=== PATIENT | male | born 1930 | race Caucasian/White ===

== ENCOUNTER 2017-04-18 16:04 | Emergency (ER) | payer MEDICARE ==
[~2017-04-18] VITALS: Ht 167.6 cm; Wt 74.4 kg
[~2017-04-18 16:04] MED LIST: ANTIVERT25 MG PO; ASPIRIN EC81 MG PO; ATROPINE SULFAT15 ML OPTH; CARVEDILOL3.125 MG PO; HYDROCODON-ACE1 EA10 PO; PANTOPRAZOLE SO40 MG PO; PRED FORTE1 ML OPTH; SIMVASTATIN40 MG PO; TAMSULOSIN HCL0.4 MG PO; WARFARIN SODIUM4 MG PO
== END 2017-04-18 17:05 | disposition home or self-care (01) ==
LOC: ED 16:04
DX: S93.402A Sprain of unspecified ligament of left ankle, initial encounter (principal); I25.2 Old myocardial infarction; Z79.01 Long term (current) use of anticoagulants; Z86.711 Personal history of pulmonary embolism; Z90.49 Acquired absence of other specified parts of digestive tract; Z79.899 Other long term (current) drug therapy; Z79.82 Long term (current) use of aspirin; Z98.61 Coronary angioplasty status; W17.89XA Other fall from one level to another, initial encounter
CPT/HCPCS: 73560; 73610; 99283

== ENCOUNTER 2017-08-16 10:20 | Inpatient (IN) | payer MEDICARE ==
[~2017-08-16] VITALS: Ht 167.6 cm; Wt 75.3 kg
--- NOTE | 2017-08-16 13:30 | NUR ---
PT RECEIVED FROM ED VIA STRETCHER, TRANSFERED SELF TO BED. PT ON 2L, 02 SATS 97%, WEANED TO 1L, RR 20, LUNG SOUNDS WITH RHONCHI THOURGHOUT, PRODUCTIVE COUGH. PT DENIES PAIN, REPORT OF PAIN TO RIGHT ARM WITH MOVEMENT. IV INFUSING NS AT 75 ML/HR. PT SKIN GROSSLY INTACT, BRUISE NOTED TO RIGHT ELBOW FROM RECENT FALL. BOWEL TONES ACTIVE. CMS INTACT, EXTREMITIES COOL TO THE TOUCH, PULSES PALPABLE. ADMISSION INTAKE COMPLETED. PT DENIES NEEDS AT THIS TIME.
--- NOTE | 2017-08-16 15:33 | NUR ---
ED PACKET GIVEN TO PATIENT.
--- NOTE | 2017-08-16 18:31 | NUR ---
PT RECEIVED FROM ED THIS AFTERNOON. PT ON 1L NC, CONTINUOUS PULSE OX IN PLACE, LUNG SOUNDS CLEAR, PRODUCTIVE COUGH. PT ON REGULAR DIET, POOR APPETITE. PT WITH WEAKNESS, RECENT FALL, HAS NOT BEEN OOB SINCE ARRIVING TO FLOOR, UP WITH ASSISTANCE. PT WITH RIGHT SHOULDER/ARM PAIN FROM RECENT FALL. PT VOIDING QS, CONCENTRATED URINE, ENOURAGED PO FLUIDS.
--- NOTE | 2017-08-16 19:05 | NUR ---
SHIFT REPORT RECIEVED. PATIENT RESTING IN BED. EYES CLOSED. RR18. CALL LIGHT IN REACH. DROPLET PRECAUTIONS IN PLACE.
--- NOTE | 2017-08-16 21:12 | NUR ---
HELPED PT GET TO THE BEDSIDE COMMODE. PT HAD A VERY LARGE BM. I CHANGED HIS BED SHEETS DUE TO INCONTINENCE OF BM. PUT A ATTENDS ON HIM, PER HIS REQUEST. HELPED HIM BACK TO BED. CLEANED UP THE COMMODE . CHARTED IN I&OS. ASKED IF HE NEEDED ANYTHING ELSE AT THIS TIME? HE SAID NO. CALL LIGHT AND BEDSIDE TABLE WITHIN REACH.
--- NOTE | 2017-08-16 21:15 | NUR ---
EVENING MEDS GIVEN PER ORDER. RT IN ROOM INSTRUCTING PATIENT. PATIENT IS AAOX3. DENIES PAIN AT THIS TIME. PATIENT'S BREATHING IS SLIGHTLY LABORED AND UPPER AIRWAY CONGESTION CAN BE HEARD. LOWER LOBES ARE DIMINISHED BILATERALLY. EXPIRTORY WHEEZES ON UPPER LOBES BILATERALLY. O2 SAT 94% ON 1L NC. PATIENT REPORTS OCCATIONAL PRODUCTIVE COUGH WITH YELLOW SPUTUM. PATIENT IS TOLERATING REGULAR DIET AND RESTING COMFORTABLE. NO OTHER NEEDS AT THIS TIME. WARM BLANKET PROVIDED. CALL LIGHT IN REACH.
--- NOTE | 2017-08-16 23:00 | NUR ---
PATIENT RESTING IN BED. EYES CLOSED. 1L NC IN PLACE, O2 SAT 94%. CALL LIGHT IN REACH.
--- NOTE | 2017-08-17 01:38 | NUR ---
PATIENT RESTING IN BED. APPEARS COMFORTABLE. REPOSITIONED NC AND PATIENT AROUSED. HE DENIED NEEDS AT THIS TIME. IV FLUIDS INFUSING PER ORDERS, SITE WNL. PATIENT'S BREATHING APPEARS REGUALR AND NONLABORED. CALL LIGHT IN REACH.
--- NOTE | 2017-08-17 02:28 | NUR ---
VITALS DONE. PT SAID HE DOES NOT NEED TO URINATE AT THIS TIME. INFORMED HIS RN CORINNA. CALL LIGHT AND BEDSIDE TABLE WITHIN REACH.
--- NOTE | 2017-08-17 02:30 | NUR ---
TONA NOVEMBER TOOK VS AND OFFERED TO ASSIST THE PATIENT WITH TOILETING, WHICH HE DENIED THE NEED. IV FLUIDS WERE FLINISHED. NEW BAG HUNG BY BRAULIO PRKAASH.
--- NOTE | 2017-08-17 05:29 | NUR ---
PATIENT SLEPT WELL THROUGHOUT THE SHIFT. 1L NC, O2 SAT >95%. PATIENT IS SBA TO THE BATHROOM AND USED URNAL DURING THE NIGHT. CALLS APPROPRIATELY. AAOX3. NO PAIN REPORTED.
--- NOTE | 2017-08-17 05:30 | NUR ---
PATIENT APPEARS TO BE SLEEPING. RR 18. PULSE OX 95% 1L NC. PATIENT AROUSED TO VOICE. HIS BREATHING BECAME MORE NOISEY WHEN AWAKE. APPEARS TO BE UPPER AIRWAY CONGESTION. PATIENT DENIES PAIN. NO NEEDS AT THIS TIME. IV FLUIDS INFUSING.
--- NOTE | 2017-08-17 07:00 | NUR ---
BEDSIDE HANDOFF REPORT RECEIVED FROM ERECTOR OPERATOR RN.
--- NOTE | 2017-08-17 09:03 | NUR ---
PT SLEEPING IN BED, AWOKEN FOR MORNING ASSESSMENT AND MEDICATIONS. PT DENIES PAIN. PT ON 1L NC O2 SATS 93%, WEANED TO ROOM AIR, LUNG SOUNDS WITH EXPIRATORY WHEEZE AND RHONCHI, PRODUCTIVE COUGH WITH YELLOW SPUTUM. IV FLUIDS INFUSING AT 75 ML/HR. PT ASSISTED TO BATHROOM, HAD BM. PT SITTING INCHAIR.
[2017-08-17] MEDS ORDERED: BACLOFEN10 MG PO (09:15)
[2017-08-17] MEDS ORDERED: CASODEX50 MG PO (09:15)
--- NOTE | 2017-08-17 10:59 | NUR ---
MED REC COMPLETE WITH [facility] REFILL HISTORY AND TELEPHONE INTERIVEW WITH JEOVANNY PATIENT'S .
--- NOTE | 2017-08-17 11:17 | NUR ---
PT WALKED IN [facility] WITH NURSE AND PHYSICAL THERAPY, SBA. PT 02 SATS OCCASIONALLY DROPPED TO 87-88%, PT WOULD RECOVER ST REST WITHIN 10 SECONDS. SATS 90-94% FOR MAJORITY OF WALK. PT WALKED 3 LAPS IN PLATA. PT ASSISTED BACK TO BED. PT ON ROOM AIR, CONTINUOUS PULSE OX IN PLACE. PT DENIES NEEDS AT THIS TIME.
--- NOTE | 2017-08-17 12:50 | NUR ---
PT SLEEPING. O2 SATS 92% ON ROOM AIR. LUNG SOUNDS WITH RHONCHI AND EXPIRATORY WHEEZE. PT DENIES PAIN. PT DENIES NEEDS AT THIS TIME, REQUESTIGN TO SLEEP.
--- NOTE | 2017-08-17 16:00 | NUR ---
PT RESTING IN BED. PT DENIES PAIN. LUNG SOUNDS CONTINUE TO HAVE RHONCHI AND EXPIRATORY WHEEZE, ON ROOM AIR, 02 SATS 94%. IV SALINE LOCKED FOR SHOWER. PT TOLERATING REGULAR DIET, DENIES NAUSEA. NO ACUTE CHANGES AT THIS TIME. NURSE AIDE TO ASSIST PT WITH SHOWER.
--- NOTE | 2017-08-17 16:03 | NUR ---
PT SHOWERED ON HIS OWN, NEEDED MINIMAL ASSISTANCE TO GET DRESSED. PT IS NOW SITTING UP IN CHAIR WITH CALL LIGHT IN REACH. LINENS CHANGED BY SADE MASTERS
--- NOTE | 2017-08-17 16:38 | NUR ---
ORDERED HIS DINNER AND BREAKFAST FOR TOMORROW. PUT A NEW OXIMETER ON HIS FINGER. NOW HE IS GOING FOR AN XRAY.
--- NOTE | 2017-08-17 18:22 | NUR ---
PT WEANED TO ROOM AIR, LUNG SOUNDS CONTINUE TO HAVE RHONCHI AND EXPIRATORY WHEEZE, PRODUCTIVE COUGH. PT UP WITH SBA. PT TOLERATING REGULAR DIET, POOR APPETITE, PT STATES AT BASELINE. IV FLUIDS INFUSING AT 75 ML/HR, POOR PO INTAKE. PT VOIDING QS. POSSIBLY DISCHARGE TOMORROW.
--- NOTE | 2017-08-17 19:00 | NUR ---
SHIFT REPORT RECIEVED. PATIENT RESTING IN BED. PULSE OX 98% ON RA. PATIENT IN A POSITIVE MOOD AND DENIES ANY CONCERNS AT THIS TIME. IV FLUIDS INFUSING, SITE WNL. CALL LIGHT IN REACH. DROPLET PRECAUTIONS IN PLACE.
--- NOTE | 2017-08-17 22:24 | NUR ---
NURSE IN ROOM
--- NOTE | 2017-08-17 22:41 | EKG ---
[facility] [address] [facility] [place] [address] Signed Sinus rhythm with 1st degree AV block Left axis deviation Nonspecific T wave abnormality Abnormal ECG No previous ECGs available Confirmed by LUIS GRAFF MD ([id number]) on 08/17/2017 10:40:41 PM Electronically Signed By: LUIS GRAFF MD 08/17/17 2241 PATIENT NAME: HEMA CHEW Electrocardiogram DATE OF : [birth year] PHYSICIAN: LIUS GRAFF MD REPORT #: [id number] REPORT IS CONFIDENTIAL AND NOT TO BE RELEASED WITHOUT AUTHORIZATION
--- NOTE | 2017-08-17 23:20 | NUR ---
EVENING MEDS GIVEN. PATIENT RESTING IN BED. AAOX3. BREATHING NONLABORED. O2 SAT 96% ON RA. IV FLUIDS INFUSING. SITE WNL. LUNGS ARE CLEAR IN UPPER LOBES INGRID AND DIMINISHED IN THE BASES. PATIENT HAS PRODUCTIVE COUGH. CMS INTACT. ABD SOFT AND NONTENDER. BOWEL SOUNDS ACTIVE. NO NEEDS AT THIS TIME. FRESH WATER PROVIDED. CALL LIGHT IN REACH.
--- NOTE | 2017-08-18 01:00 | NUR ---
PATIENT RESTING IN BED. O2 SAT 96% ON RA. RR18. EYES CLOSED. CALL LIGHT IN REACH.
--- NOTE | 2017-08-18 03:00 | NUR ---
PATIENT RESTING IN BED. BREATHING IS NONLABORED. OCCATIONAL COUGH WITH SMALL AMOUNT OF SPUTUM. LUNGS ARE COARSE IN UPPER LOBES BILATERALLY AND DIMINISHED IN THE BASES. CALL LIGHT IN REACH.
--- NOTE | 2017-08-18 05:00 | NUR ---
CARE NURSE RN KHLOE STARTED NEW BAG OF IV FLUIDS. URNAL EMPTIED. CALL LIGHT IN REACH. NO NEEDS AT THIS TIME.
--- NOTE | 2017-08-18 06:30 | NUR ---
PATIENT RESTING IN BED. RR 18. CALL LIGHT IN REACH.
--- NOTE | 2017-08-18 07:42 | NUR ---
HANDOFF REPORT RECEIVED FROM LINING CLEANER RN.
--- NOTE | 2017-08-18 09:29 | NUR ---
PT RESTING IN BED. PT COMPLAINT OF NOT SLEEPING WELL LAST NIGHT. PT DENIES PAIN. LUNG SOUNDS WITH EXPIRATORY WHEEZE THROUGHOUT, O2 SATS 91% ON ROOM AIR. IV FLUIDS INFUSING AT 75 ML/HR. PT WITH POOR APPETTIE, ENCOURAGED TO EAT BREAKFAST AND DRINK WATER. PT VOIDED IN URINAL, COLOR IMPROVED FROM YESTERDAY. PT BOWEL TONES ACTIVE. NO EDEMA NOTED, CMS INTACT. DISCUSSED PLAN OF CARE, PT WILL WALK IN PLATA WIOTH NURSING STAFF AFTER EATING BREAKFAST. PT DENIES NEEDS AT THIS TIME.
--- NOTE | 2017-08-18 09:59 | NUR ---
WE DID PATIENTS VITAL SIGNS AND HE ASKED REAL MCCONNELL.
--- NOTE | 2017-08-18 11:21 | NUR ---
PT WALKED 2 FULL LAPS IN HALLWAY. PT IS NOW RESTING IN BED WITH CALL LIGHT IN REACH
[2017-08-18] MEDS ORDERED: OSELTAMIVIR PHO30 MG PO (12:29)
== END 2017-08-18 14:10 | disposition home or self-care (01) | DRG 195 ==
LOC: ED 10:20 → MS 12:58
PROVIDERS: ADMIT Internal Medicine
DX: J10.1 Influenza due to other identified influenza virus with other respiratory manifestations (principal); I48.2 Chronic atrial fibrillation; I25.10 Atherosclerotic heart disease of native coronary artery without angina pectoris; R09.02 Hypoxemia; H91.90 Unspecified hearing loss, unspecified ear; N40.0 Benign prostatic hyperplasia without lower urinary tract symptoms; K21.9 Gastro-esophageal reflux disease without esophagitis; M62.81 Muscle weakness (generalized); Z79.01 Long term (current) use of anticoagulants; Z91.81 History of falling; Z95.5 Presence of coronary angioplasty implant and graft; Z86.711 Personal history of pulmonary embolism; Z86.718 Personal history of other venous thrombosis and embolism; Z79.82 Long term (current) use of aspirin; Z79.891 Long term (current) use of opiate analgesic; Z79.899 Other long term (current) drug therapy
CPT/HCPCS: 36415; 71046; 80048; 80053; 84484; 85025; 85610; 87502; 93005; 93010; 94640; 94761; 97161; J7030

== ENCOUNTER 2017-09-21 20:56 | Emergency (ER) | payer MEDICARE ==
[~2017-09-21] VITALS: Ht 167.6 cm; Wt 75.3 kg
--- OUTSIDE RECORDS SUMMARY | ~2017-09-21 | XMS | Clinical Summary ---
Demographics + + + | Address | [address] | | | [place] [address] | + + + | Home Phone | | + + + | Preferred Language | Unknown | + + + | Marital Status | | + + + | Sikhism Affiliation | NRP | + + + | Race | White | + + + | Ethnic Group | Not or | + + + Author + + + | Author | [facility] | + + + | Organization | [facility] | + + + | Address | Unknown | + + + | Phone | Unavailable | + + + Support + + + + + | Name | Relationship | Address | Phone | + + + + + | Chester Reese | ECON | [address] | | | | | [place] | | | | | [phone] | | + + + + + Care Team Providers + +------+ + | Care Linux Kernel Engineer Name | Role | Phone | + +------+ + | Yeison Mcdermott MD | PP | | + +------+ + Source Comments [facility] is fully live on both [facility] and [facility] InPatient.[facility] Allergies No Known Allergies Current Medications + + +--------+---------+------+------+-------+ | Prescription | Sig. | Disp. | Refills | Star | End | Statu | | | | | | t | Date | s | | | | | | Date | | | + + +--------+---------+------+------+-------+ | senna-docusate | Take 1 each by mouth | | | | | Activ | | 4.3-25 oral tablet | once daily. | | | | | e | + + +--------+---------+------+------+-------+ | pantoprazole 40 mg | Take 40 mg by mouth | | | | | Activ | | oral tablet,delayed | once daily. | | | | | e | | release (DR/EC) | | | | | | | + + +--------+---------+------+------+-------+ | aspirin chewable | Chew and swallow 81 | | | | | Activ | | 81 mg oral | mg once daily. | | | | | e | | tablet,chewable | | | | | | | + + +--------+---------+------+------+-------+ | warfarin 2 mg oral | Take 5 mg by mouth | | | | | Activ | | tablet | once daily at | | | | | e | | | bedtime. | | | | | | + + +--------+---------+------+------+-------+ | carvedilol 3.125 | Take 3.125 mg by | | | | | Activ | | mg oral tablet | mouth two times | | | | | e | | | daily. Administer | | | | | | | | with food. | | | | | | + + +--------+---------+------+------+-------+ | simvastatin 40 mg | Take 40 mg by mouth | | | | | Activ | | oral tablet | once daily in the | | | | | e | | | evening. | | | | | | + + +--------+---------+------+------+-------+ | tamsulosin 0.4 mg | Take 0.4 mg by mouth | | | | | Activ | | oral | once daily. | | | | | e | | capsule,extended | | | | | | | | release 24hr | | | | | | | + + +--------+---------+------+------+-------+ | meclizine 25 mg | Take 25 mg by mouth. | | | 02 | | Activ | | oral tablet | | | | 05/02 | | e | | | | | | 16 | | | + + +--------+---------+------+------+-------+ | ketorolac (ACULAR) | Instill 1 drop into | 5 mL | 6 | 03/13 | | Activ | | 0.5 % ophthalmic | the right eye four | | | 12/30 | | e | | dropsIndications: | times daily. 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 | + + + + + | Last Assessment & Plan: Right eye is attached, looks good | | with reasonable vision, but the patient perceives the images as | | being smaller and colors that are different at different | | locationMild cystoid macular edema seen on optical coherence | | tomography Try NSAIDs to treat the cystoid macular edema | + + + + + | Vitreous hemorrhage, right eye (HCC) | 08/23/2015 | + + + | Choroidal detachment, hemorrhagic, right eye | 08/23/2015 | + + + + + | Last Assessment & Plan: Doing very well except some | | distortion of vision stop atropine taper prednisolone acetate | | | + + + + + | Scleral laceration of right eye | 08/21/2015 | + + + + + | Last Assessment & Plan: status post pars plana vitrectomy | | with oilRetina attachedlooks good PARQ held for oil removal; | | will schedule | | PARQ held for oil removal; will schedule | + + Resolved Problems + + + + | Problem | Noted | Resolved | | | Date | Date | + + + + | Injury of globe of right eye, initial encounter | 08/22/19 | | | | 16 | 6 | + + + + Family History + + +------+ + | Medical History | Relation | Name | Comments | + + +------+ + | None | Brother | | | + + +------+ + | None | Child | | | + + +------+ + | Non-contributory | Father | | | + + +------+ + | Non-contributory | Mother | | | + + +------+ + | None | Other | | | + + +------+ + | None | Sister | | | + + +------+ + + +------+--------+ + | Relation | Name | Status | Comments | + +------+--------+ + | Brother | | | | + +------+--------+ + | Child | | | | + +------+--------+ + | Father | | | | + +------+--------+ + | Mother | | | | + +------+--------+ + | Other | | | | + +------+--------+ + | Sister | | | | + +------+--------+ + Social History + +-------+ +--------+------+ | Tobacco Use | Types | Packs/Day | Years | Date | | | | | Used | | + +-------+ +--------+------+ | Never Smoker | | | | | + +-------+ +--------+------+ + +---+---+---+ | Smokeless Tobacco: | | | | | Never Used | | | | + +---+---+---+ + + +---------+ + | Alcohol Use | Drinks/We | oz/Week | Comments | | | ek | | | + + +---------+ + | Yes | 0 | 0.0 | rare | | | Standard | | | | | drinks or | | | | | | | | | | equivalen | | | | | t | | | + + +---------+ + + + + | Sex Assigned at | Date Recorded | | | | + + + | Not on file | | + + + Last Filed Vital Signs + + + + | Vital Sign | Reading | Time Taken | + + + + | Blood Pressure | 152/84 | 01/11/2016 1:17 PM PDT | + + + + | Pulse | 68 | 01/11/2016 1:17 PM PDT | + + + + | Temperature | 36.5 C (97.7 F) | 01/11/2016 1:17 PM PDT | + + + + | Respiratory Rate | 16 | 01/11/2016 1:17 PM PDT | + + + + | Oxygen Saturation | 96% | 01/11/2016 1:17 PM PDT | + + + + | Inhaled Oxygen | - | - | | Concentration | | | + + + + | Weight | 68 kg (150 lb) | 09/14/2015 10:26 AM PST | + + + + | Height | 172.7 cm (5' 7.99") | 01/11/2016 11:00 AM PDT | + + + + | Body Mass Index | 22.81 | 09/14/2015 10:26 AM PST | + + + + Plan of Treatment + + + + + | Health Maintenance | Due Date | Last Done | Comments | + + + + + | INFLUENZA VACCINE | | | | | (FLU SHOT) | 7 | | | + + + + + Implants + +------+--------+ +--------+--------+--------+ | Implanted | Type | Area | Manufacture | Device | Expira | Model | | | | | r | | tion | / | | | | | | Identi | Date | Serial | | | | | | fier | | / Lot | + +------+--------+ +--------+--------+--------+ | Solution Ophthalmic Adato | | Right: | BAKAITH & | | 12/08/ | ES-500 | | Michelle-Ol 5000 Silicone Syringe | | Eye | LOMB | | 2017 | 0-S / | | Viscous Fluid Pack 10ml | | | SURGICAL | | | [id number] | | [id number] Sterile - | | | | | | | | [id number]: Qty: 1 on | | | | | | | | 09/14/2015 by Jama Liao, | | | | | | | | MD | | | | | | | + +------+--------+ +--------+--------+--------+ Results Not on filefrom Last 3 Months
--- OUTSIDE RECORDS SUMMARY | ~2017-09-21 | XMS | Clinical Summary ---
Demographics + + + | Address | [address] | | | [place] [address] | + + + | Home Phone | | + + + | Preferred Language | Unknown | + + + | Marital Status | | + + + | Buddhist Affiliation | NRP | + + + [...] | Chester Reese | ECON | [address] | | | | | [place] | | | | | [phone] | | + + + + + Care Team Providers + +------+ + | Care Chemical Analyst Name | Role | Phone | + +------+ + | Yeison Mcdermott MD | PP | | + +------+ + Source Comments [facility] is fully live on both [facility] Ambulatory and [facility] InPatient.[facility] Allergies No Known Allergies Current Medications + [...] | | | SURGICAL | | | /[id number] | | [id number] Sterile - | | | | | | | | [id number]: Qty: 1 on | | | | | | | | 09/14/2015 by Jama Liao, | | | | | | | | MD | | | | | | | + +------+--------+ +--------+--------+--------+ Results Not on filefrom Last 3 Months
[~2017-09-21 20:56] MED LIST changes: +BACLOFEN10 MG PO; +CASODEX50 MG PO; +OSELTAMIVIR PHO30 MG PO
[2017-09-21] MEDS ORDERED: FLAGYL500 MG PO (22:42)
[2017-09-21] MEDS ORDERED: TYLENOL WITH C1 EACH PO (22:42)
[2017-09-21] MEDS ORDERED: CIPRO500 MG PO (22:42)
--- NOTE | 2017-09-22 17:58 | EKG ---
[facility] [address] [facility] [place] [address] Signed Sinus tachycardia with 1st degree AV block Left axis deviation Nonspecific T wave abnormality Abnormal ECG When compared with ECG of 16-AUG-2017 10:29, Nonspecific T wave abnormality, improved in Lateral leads Confirmed by LUIS GRAFF MD ([id number]) on 09/22/2017 5:58:11 PM Electronically Signed By: LUIS GRAFF MD 09/22/17 1758 PATIENT NAME: HEMA CHEW Electrocardiogram DATE OF : [birth year] PHYSICIAN: LUIS GRAFF MD REPORT #: [id number] REPORT IS CONFIDENTIAL AND NOT TO BE RELEASED WITHOUT AUTHORIZATION
== END 2017-09-21 23:13 | disposition home or self-care (01) ==
LOC: ED 20:56
DX: K57.92 Diverticulitis of intestine, part unspecified, without perforation or abscess without bleeding (principal); I25.2 Old myocardial infarction; Z79.01 Long term (current) use of anticoagulants; Z79.82 Long term (current) use of aspirin; Z79.899 Other long term (current) drug therapy; Z95.5 Presence of coronary angioplasty implant and graft
CPT/HCPCS: 71046; 74177; 80053; 81001; 83690; 84484; 85025; 93005; 93010; 99284; Q9967

== ENCOUNTER 2018-01-07 08:55 | Emergency (ER) | payer MEDICARE ==
[~2018-01-07] VITALS: Ht 175.3 cm; Wt 76.7 kg
[~2018-01-07 08:55] MED LIST changes: +CIPRO500 MG PO; +FLAGYL500 MG PO; +TYLENOL WITH C1 EACH PO
== END 2018-01-07 10:31 | disposition home or self-care (01) ==
LOC: ED 08:55
PROC: 0R9M3ZZ Drainage of Left Elbow Joint, Percutaneous Approach (ICD-10-PCS; principal; 2018-01-07)
DX: S50.02XA Contusion of left elbow, initial encounter (principal); M25.422 Effusion, left elbow; I25.2 Old myocardial infarction; Z79.01 Long term (current) use of anticoagulants; Z79.899 Other long term (current) drug therapy; W22.8XXA Striking against or struck by other objects, initial encounter
CPT/HCPCS: 20605; 73080; 99283